=== PATIENT | female | born 1970 | race Native Hawaiian/Other Pacific Islander ===

== ENCOUNTER 2016-11-28 03:40 | Inpatient (IN) | payer OTHER ==
[~2016-11-28] VITALS: Ht 167.6 cm; Wt 169.4 kg
[2016-11-28] VITALS (12 sets, daily range): BP systolic 93–130; BP diastolic 69–87; TEMP 97.6–98; Ht 167.6 cm; Wt 169.4 kg
[~2016-11-28 03:40] MED LIST: ALBU90AE13 INH; BUSPIRONE15 MG PO; GABA300C2 PO; METF100038 PO; MIRTAZAPINE7.5 MG PO; PRED20TA27 PO; QUETIAPINE FUMA50 MG PO; RISPERDAL4 MG PO
[2016-11-28] MEDS ORDERED: PROTONIX20 MG PO (05:53)
[2016-11-28] MEDS ORDERED: METAMUCIL0.52 GM OR (05:54)
[2016-11-28] MEDS ORDERED: MUPI2OIN2 TOP (05:55)
[2016-11-28] MEDS ORDERED: ZIPR20CA PO (05:55)
[2016-11-28] MEDS ORDERED: DIVA500T2 OR (05:56)
[2016-11-28] MEDS ORDERED: ALUMSUS6 PO (05:57)
[2016-11-28] MEDS ORDERED: TYLENOL325 MG OR ×2 (05:58→06:00)
[2016-11-28] MEDS ORDERED: EMOLOIN22 (05:59)
[2016-11-28] MEDS ORDERED: MAGNSUS68 PO (05:59)
[2016-11-28] MEDS ORDERED: HYDROXYZ HCL50 MG PO (06:02)
[2016-11-28] MEDS ORDERED: TRAMADOL HCL100 MG OR (06:03)
[2016-11-28] MEDS ORDERED: ZIPR20IN IM (06:04)
[2016-11-28 09:05] LABS: PLATELET COUNT 179 K/uL (152-353)
[2016-11-28 11:07] LABS: POTASSIUM 4.5 mmol/L (3.6-5.2)
[2016-11-29 00:34] VITALS: BP 130/88; TEMP 98.1
[2016-11-29 02:31] VITALS: BP 124/89
[2016-11-29 03:31] VITALS: BP 121/71; TEMP 98.3
[2016-11-29 05:12] VITALS: BP 107/80
[2016-11-29 05:13] LABS: PLATELET COUNT 178 K/uL (152-353)
[2016-11-29 07:10] VITALS: BP 124/92; TEMP 98.4
[2016-11-29 12:30] VITALS: BP 131/84; TEMP 97.4
== END 2016-11-29 13:00 | disposition other institution (70) | DRG 292 ==
LOC: ICU 03:40
PROVIDERS: Emergency Medicine; ADMIT Psychiatry & Neurology Addiction Psychiatry
DX: I50.9 Heart failure, unspecified (principal); F20.89 Other schizophrenia; J44.9 Chronic obstructive pulmonary disease, unspecified; I10 Essential (primary) hypertension; E78.4 Other hyperlipidemia; E11.9 Type 2 diabetes mellitus without complications
CPT/HCPCS: 36415; 51702; 80053; 80164; 81000; 82550; 82962; 83735; 83880; 84484; 85027; 93306; 94760; J1885; J1940